=== PATIENT | female | born 1985 ===

== ENCOUNTER 2020-04-25 06:59 | Inpatient (IN) ==
[2020-04-25] MEDS ORDERED: CITRIC ACID/SODIUM CITRATE 30 ML UDCUP PO ONE (07:42)
[2020-04-25] MEDS ORDERED: FAMOTIDINE 20 MG/2 ML VIAL IV ONE (07:42)
[2020-04-25] MEDS ORDERED: ceFAZolin 2,000 MG in PREMIX 1 EACH IV ONE (07:42)
[2020-04-25] MEDS ORDERED: OXYTOCIN/LR 30 UNIT/1,000 ML BAG IV ONE (07:43)
[2020-04-25] MEDS ORDERED: OXYTOCIN 10 UNIT/ML VIAL IM ONE (07:43)
[2020-04-25] MEDS ORDERED: LACTATED RINGERS 1,000 ML IV SCH ×3 (08:00→18:00)
[2020-04-25 08:01] LABS: Basophils # 0.1 10*3/uL (0.0-0.2); Basophils % 0.5 % (0.0-0.8); Eosinophils # 0.2 10*3/uL (0.0-0.87); Eosinophils % 1.6 % (0.00-10.9); Hematocrit 37.3 VOL% (35.7-47.0); Hemoglobin 12.1 GM/DL (12.0-16.0); Immature Granulocytes % 0.6 %; Immature Granulocytes Absolute 0.06 #; Lymphocytes # 2.7 10*3/uL (1.4-4.0); Lymphocytes % 29.4 % (21.3-54.2); Mean Corpuscular HGB Conc 32.4 GM/DL (32-36); Mean Corpuscular Volume 94.7 FL (87-102); Mean Platelet Volume 11.8 FL (9.6-12.0); Monocytes % 9.4 % (1.7-12.7); Neutrophils % 58.5 % (38.7-73.9); Platelet Count 217 T/CUMM (130-400); Red Blood Count 3.94 MC/CUMM (3.8-5.5); Red Cell Distribution Width 14.1 % (9.3-17.3); White Blood Count 9.3 T/CUMM (4-12)
[2020-04-25] MEDS ORDERED: ONDANSETRON 4 MG/2 ML VIAL ONE ×2 (08:24→08:27)
[2020-04-25] MEDS ORDERED: PHENYLEPHRINE 1 MG/10 ML SYRINGE IV ONE (08:26)
[2020-04-25] MEDS ORDERED: fentaNYL 100 MCG/2 ML VIAL ONE (08:26)
[2020-04-25] MEDS ORDERED: MORPHINE 10 MG/10 ML VIAL ONE (08:26)
[2020-04-25] MEDS ORDERED: BUPIVACAINE 0.25% 50 ML VIAL ONE (08:26)
[2020-04-25] MEDS ORDERED: BUPIVACAINE SPINAL 0.75% 2 ML AMP SPINAL ONE (08:27)
[2020-04-25] MEDS ORDERED: DEXAMETHASONE 4 MG/1 ML VIAL ONE (08:27)
[2020-04-25] MEDS ORDERED: TRANEXAMIC ACID 1,000 MG/10 ML VIAL ONE (08:33)
[2020-04-25] MEDS ORDERED: miSOPROStoL 200 MCG TABLET ONE (08:33)
[2020-04-25] MEDS ORDERED: METHYLERGONOVINE 0.2 MG/1 ML AMP ONE (08:34)
[2020-04-25] MEDS ORDERED: CARBOPROST TROMETHAMINE 250 MCG/ML AMP IM ONE (08:34)
[2020-04-25 08:40] LABS: Alanine Aminotransferase 13 U/L (13-56); Albumin 2.6 G/DL (3.4-5.0); Alkaline Phosphatase 99 U/L (45-117); Aspartate Amino Transferase 18 U/L (0-37); Bilirubin,Total < 0.39 MG/DL (0.2-1.0); Blood Urea Nitrogen 15 MG/DL (7-18); Calcium 8.8 MG/DL (8.5-10.1); Estimated Glom Filtration Rate 109 ML/MIN; Glucose 82 MG/DL (74-106); Osmolality,Calculated 274.7 MOS/KG (273-304); Total Protein 7.1 G/DL (6.4-8.3)
[2020-04-25] MEDS ORDERED: LACTATED RINGERS 1,000 ML IV ONE (08:57)
[2020-04-25] MEDS ORDERED: ONDANSETRON 4 MG/2 ML VIAL IV PRN (10:54)
[2020-04-25] MEDS ORDERED: OXYTOCIN/LR 20 UNIT/1,000 ML BAG IV ONE (10:54)
[2020-04-25] MEDS ORDERED: MAGNESIUM HYDROXIDE SUSP 30 ML UDCUP PO PRN (10:54)
[2020-04-25] MEDS ORDERED: ACETAMINOPHEN 325 MG TABLET PO PRN (10:54)
[2020-04-25] MEDS ORDERED: RHO(D) IMMUNE GLOBULIN 300 MCG SYRINGE IM ONE (10:54)
[2020-04-25] MEDS ORDERED: IBUPROFEN 800 MG TABLET PO PRN (10:54)
[2020-04-25] MEDS ORDERED: SIMETHICONE CHEW 80 MG TABLET PO PRN (10:54)
[2020-04-25] MEDS ORDERED: ceFAZolin 1,000 MG in SYRINGE 1 EACH IV SCH (11:00)
[2020-04-25 11:45] LABS: Apearance,Urine CLEAR (Clear); Bilirubin,Urine Negative (Negative); Blood, Urine Negative (Negative); Glucose,Urine (UA) Negative (Negative); Ketones,Urine Negative (Negative); Mucus,Urine Occasional /LPF (Occasional); Nitrite,Urine Negative (Negative); Protein,Urine Negative; RBC,Urine <1 /HPF (0-4); Squamous Epithelial Cell,Urine Occasional /HPF (0-10); Urine Color Straw (Yellow); Urine Specific Gravity 1.006 (1.001-1.035); Urine Urobilinogen < 2.0 EU/DL (0.2-1.0); WBC,Urine <1 /HPF (0-6)
[2020-04-25] MEDS: KETOROLAC 30 MG/1 ML VIAL IV SCH ×2 (14:15→20:45)
[2020-04-25] MEDS ORDERED: SODIUM CHLORIDE 0.9% 50 ML IV ONE (17:49)
[2020-04-25] MEDS: ceFAZolin 1,000 MG in SYRINGE 1 EACH IV SCH (17:57)
[2020-04-25 18:29] LABS: Basophils % 0.3 % (0.0-0.8); Hematocrit 34.5 VOL% (35.7-47.0); Hemoglobin 11.3 GM/DL (12.0-16.0); Immature Granulocytes % 0.7 %; Immature Granulocytes Absolute 0.11 #; Lymphocytes # 1.3 10*3/uL (1.4-4.0); Lymphocytes % 8.1 % (21.3-54.2); Mean Corpuscular HGB Conc 32.8 GM/DL (32-36); Mean Corpuscular Volume 94.5 FL (87-102); Mean Platelet Volume 11.5 FL (9.6-12.0); Monocytes % 3.4 % (1.7-12.7); Neutrophils % 87.5 % (38.7-73.9); Platelet Count 183 T/CUMM (130-400); Red Blood Count 3.65 MC/CUMM (3.8-5.5); Red Cell Distribution Width 13.8 % (9.3-17.3); White Blood Count 15.7 T/CUMM (4-12)
[2020-04-25] MEDS: ALUMINUM/MAGNES/SIMETH MAX STR 30 ML UDCUP PO PRN (23:05)
[2020-04-26] MEDS: DOCUSATE SODIUM 100 MG CAPSULE PO SCH ×2 (01:21→09:41)
[2020-04-26] MEDS: ceFAZolin 1,000 MG in SYRINGE 1 EACH IV SCH (02:21)
[2020-04-26] MEDS: KETOROLAC 30 MG/1 ML VIAL IV SCH (02:29)
[2020-04-26 05:47] LABS: Basophils % 0.2 % (0.0-0.8); Eosinophils % 0.2 % (0.00-10.9); Hematocrit 29.3 VOL% (35.7-47.0); Hemoglobin 9.6 GM/DL (12.0-16.0); Immature Granulocytes % 0.6 %; Immature Granulocytes Absolute 0.07 #; Lymphocytes # 2.6 10*3/uL (1.4-4.0); Lymphocytes % 20.6 % (21.3-54.2); Mean Corpuscular HGB Conc 32.8 GM/DL (32-36); Mean Corpuscular Volume 94.2 FL (87-102); Mean Platelet Volume 11.8 FL (9.6-12.0); Monocytes % 8.8 % (1.7-12.7); Neutrophils % 69.6 % (38.7-73.9); Platelet Count 164 T/CUMM (130-400); Red Blood Count 3.11 MC/CUMM (3.8-5.5); White Blood Count 12.7 T/CUMM (4-12)
[2020-04-26] MEDS ORDERED: METOCLOPRAMIDE 10 MG TABLET PO SCH (08:00)
[2020-04-26] MEDS ORDERED: MULTIVITAMIN (PRENATAL) TABLET PO SCH (09:00)
[2020-04-26 10:11] VITALS: BP 112/69
[2020-04-26] MEDS: ALUMINUM/MAGNES/SIMETH MAX STR 30 ML UDCUP PO PRN (15:10)
== END 2020-04-26 15:10 | disposition home or self-care (01) | DRG 540 ==
LOC: N.LD 06:59 → N.OB 14:06
PROVIDERS: ADMIT Obstetrics & Gynecology; ATTEND Obstetrics & Gynecology
PROC: LDCSECT (ICD-10-PCS; 2020-04-25 09:00)